=== PATIENT | female | born 1985 | race African-American/Black ===

== ENCOUNTER 2023-02-06 08:15 | Emergency (ER) | payer OTHER ==
[~2023-02-06] VITALS: Ht 175.3 cm; Wt 91.0 kg
[2023-02-06 08:19] VITALS: TEMP 98.7; O2SAT 97
[2023-02-06] MEDS ORDERED: OXYCODONE HCL/ACETAMINOPHEN 5/325MG TABLET PO ONE (08:30)
[2023-02-06 09:27] VITALS: BP 184/129; PULSE 90; RESP 16
[2023-02-06] MEDS ORDERED: IBUP-2028 PO (10:14)
[2023-02-06] MEDS ORDERED: T3 PO (10:14)
== END 2023-02-06 10:54 | disposition home or self-care (01) ==
LOC: ER 08:15
DX: M25.561 Pain in right knee (principal); Z88.0 Allergy status to penicillin
CPT/HCPCS: 73590; 99283; Z7610 ×3; L1830